=== PATIENT | male | born 1960 | race Caucasian/White ===

== ENCOUNTER 2019-07-15 06:40 | Emergency (ER) | payer SELFPAY ==
--- NOTE | 2019-07-15 08:20 | ER Document Report ---
ED Respiratory Problem - General Chief Complaint: Cough Stated Complaint: FEVER/COUGH Time Seen by Provider: 07/15/19 08:09 Notes: CHIEF COMPLAINT: Cough and fever for 5 days HPI: 58-year-old male presenting to the emergency department complaining of cough and fever over the last 5 days. Patient reports some chest wall discomfort with coughing only. States fever has been up to 102 5 days ago but feels like it has been slightly decreasing over the last several days. Patient reports a continued spastic cough. No recent ill contacts although he states he visited a friend in the hospital 2 weeks ago ROS: See HPI - all other systems were reviewed and are otherwise negative Constitutional: + fever Eyes: no drainage, no blurred vision ENT: no runny nose, no sore throat Cardiovascular: + chest pain with cough only Resp: no SOB, + cough GI: no vomiting, no diarrhea, no abdominal pain : no dysuria Integumentary: no rash Allergy: no hives Musculoskeletal: no extremity pain or swelling Neurological: no numbness/tingling, no weakness MEDICATIONS: I agree with the patient medications as charted by the RN. ALLERGIES: I agree with the allergies as charted by the RN. PAST MEDICAL HISTORY/PAST SURGICAL HISTORY: Reviewed and agree as charted by RN. SOCIAL HISTORY: Reviewed and agree as charted by RN. FAMILY HISTORY: No significant familial comorbid conditions directly related to patient complaint EXAM: Reviewed vital signs as charted by RN. CONSTITUTIONAL: Alert and oriented and responds appropriately to questions. Well-appearing; well-nourished, mild distress secondary to cough HEAD: Normocephalic; atraumatic EYES: PERRL; Conjunctivae clear, sclerae non-icteric ENT: normal nose; no rhinorrhea; moist mucous membranes; pharynx without lesions noted, no uvula edema or deviation, no tonsillar hypertrophy, phonation normal NECK: Supple without meningismus; non-tender; no cervical lymphadenopathy, no masses CARD: RRR; no murmurs, no clicks, no rubs, no gallops; symmetric distal pulses RESP: Normal chest excursion without splinting or tachypnea; breath sounds clear and equal bilaterally; no wheezes, no rhonchi, no rales, pulse oximetry 96% on room air not hypoxic ABD/GI: Normal bowel sounds; non-distended; soft, non-tender, no rebound, no guarding; no palpable organomegaly or masses. BACK: The back appears normal and is non-tender to palpation, there is no CVA tenderness EXT: Normal ROM in all joints; non-tender to palpation; no cyanosis, no effusions, no edema SKIN: Normal color for age and race; warm; dry; good turgor; no acute lesions noted NEURO: Moves all extremities equally; Motor and sensory function intact PSYCH: The patient's mood and manner are appropriate. Grooming and personal hygiene are appropriate. MDM: 58-year-old male presenting for upper respiratory symptoms for 5 days. Started with sinus congestion and cough. Unlikely that this is ACS. Initial triage orders for chest x-ray, influenza, strep, he has no throat discomfort at this time TRAVEL OUTSIDE OF THE [place] IN LAST 30 DAYS: No - Related Data Allergies/Adverse Reactions: Penicillins Allergy (Mild, Verified 07/15/19 07:27) Past Medical History - Social History Smoking Status: Current Every Day Smoker Chew tobacco use (# tins/day): No Frequency of alcohol use: None Drug Abuse: Marijuana Family History: Reviewed & Not Pertinent Patient has suicidal ideation: No Patient has homicidal ideation: No GI Medical History: Reports: Hx Gastroesophageal Reflux Disease Past Surgical History: Reports: Hx Abdominal Surgery - right hernia repair (groin) - Immunizations Hx Diphtheria, Pertussis, Tetanus Vaccination: No Physical Exam - Vital signs Vitals: Temp Pulse Resp BP Pulse Ox 97.7 F 70 16 117/75 96 07/15/19 06:58 07/15/19 06:58 07/15/19 06:58 07/15/19 06:58 07/15/19 06:58 Course - Re-evaluation Re-evalutation: 07/15/19 09:06 Rapid strep and influenza test are both negative. Chest x-ray read as negative for infiltrate or pneumonia, multiple old granulomas are noted in both lungs. Patient does smoke he likely has early emphysema. Will cover patient for atypical bronchitis with Zithromax, albuterol MDI, short course of steroids, PCP follow-up. Advised to stop smoking - Vital Signs Vital signs: Temp Pulse Resp BP Pulse Ox 97.7 F 70 16 117/75 96 07/15/19 06:58 07/15/19 06:58 07/15/19 06:58 07/15/19 06:58 07/15/19 06:58 Discharge - Discharge Clinical Impression: Bronchitis, Tobacco use Condition: Stable Disposition: HOME, SELF-CARE Instructions: Bronchitis ([facility]) Additional Instructions: 1. take the medications as prescribed 2. if you were prescribed an Albuterol inhaler, use it as instructed, 2 puffs every 4 hours as needed for cough/wheezing 3. call your primary care provider as soon as possible to schedule recheck appt. in the office. 4. return to the ED for any worsening condition, shortness of breath or continued fever that does not resolve with Motrin/Tylenol 5. stop smoking Prescriptions: Prednisone [Deltasone 20 mg Tablet] 2 tab PO DAILY 5 Days tablet Albuterol Sulfate [Proair HFA Inhalation Aerosol 8.5 gm MDI] 2 puff IH Q4H PRN #1 mdi PRN Reason: Azithromycin [Zithromax 250 mg Tablet] 250 mg PO ASDIR PRN #6 tablet PRN Reason: Referrals: COLTON GOLDSTEIN MD [ACTIVE STAFF] - Follow up as needed
[2019-07-15 08:38] LABS: A TYPE INFLUENZA AG NEGATIVE (NEGATIVE); B INFLUENZA AG NEGATIVE (NEGATIVE)
--- NOTE | 2019-07-15 08:53 | RADIOLOGY REPORT (SQ) ---
EXAM DESCRIPTION: CHEST 2 VIEWS COMPLETED DATE/TIME: 07/15/2019 8:35 am REASON FOR STUDY: cough, upper chest discomfort COMPARISON: CT chest 07/05/2010 Chest films 06/08/2010 EXAM PARAMETERS: NUMBER OF VIEWS: two views TECHNIQUE: Digital Frontal and Lateral radiographic views of the chest acquired. RADIATION DOSE: NA LIMITATIONS: none FINDINGS: LUNGS AND PLEURA: Multiple calcified granulomas are present scattered throughout both lung s, similar compared to chest film 06/08/2010. There is mild hyperinflation with flattening in the hemidiaphragms. No acute infiltrates. No pleural effusion. No pneumothorax. MEDIASTINUM AND HILAR STRUCTURES: No masses or contour abnormalities. HEART AND VASCULAR STRUCTURES: Heart normal size. No evidence for failure. BONES: No acute findings. HARDWARE: None in the chest. OTHER: No other significant finding. IMPRESSION: Obstructive lung disease Multiple old calcified granulomas throughout both lungs. TECHNICAL DOCUMENTATION: JOB ID: [id number] [employer]- All Rights Reserved Reading location - IP/workstation name: [email or web address]
[2019-07-15 09:17] VITALS: BP 126/73
== END 2019-07-15 09:19 | disposition home or self-care (01) ==
LOC: ER 06:40
DX: J40 Bronchitis, not specified as acute or chronic (principal); J84.10 Pulmonary fibrosis, unspecified; R05 Cough; R50.9 Fever, unspecified; R09.89 Other specified symptoms and signs involving the circulatory and respiratory systems; R07.89 Other chest pain; F17.200 Nicotine dependence, unspecified, uncomplicated; Z88.0 Allergy status to penicillin; F12.10 Cannabis abuse, uncomplicated
CPT/HCPCS: 71046; 87070; 87804; 87880; 99283

== ENCOUNTER 2020-05-13 23:08 | Emergency (ER) | payer SELFPAY ==
[2020-05-14 03:35] VITALS: BP 191/95
[2020-05-14] MEDS ORDERED: CLINDAMYCIN HCL 150 MG CAPSULE PO ONE (05:09)
[2020-05-14] MEDS ORDERED: HYDROCODONE/ACETAMINOPHEN 5-325 MG (6 TAB/ER DISP) PO PRN (05:10)
--- NOTE | 2020-05-14 05:13 | ER Document Report ---
HPI - HPI Time Seen by Provider: 05/14/20 05:00 Context: Patient is a 59-year-old male who comes emergency department for chief complaint of dental pain. He states he started having pain and swelling in his mid lower gumline over the past 2 days which is significantly worsened. He states he has a tiny tooth that became evident within his gumline started receding, he has had all his other teeth extracted, he states the area has become inflamed and now painful and swollen. He denies facial swelling, sore throat, difficulty swallowing, fever, or any other complaints. He denies any daily medications or diagnosed medical history. Past Medical History - General Information source: Patient - Social History Smoking Status: Current Every Day Smoker Drug Abuse: None Lives with: Alone Family History: Reviewed & Not Pertinent - Medical History Medical History: Negative GI Medical History: Reports: Hx Gastroesophageal Reflux Disease Past Surgical History: Reports: Hx Abdominal Surgery - right hernia repair (groin) - Immunizations Hx Diphtheria, Pertussis, Tetanus Vaccination: Yes Vertical Provider Document - CONSTITUTIONAL General Appearance: WD/WN, No Apparent Distress - INFECTION CONTROL TRAVEL OUTSIDE OF THE [place] IN LAST 30 DAYS: No - HEENT HEENT: Atraumatic, Normocephalic. negative: Normal ENT Exam - Pharynx unremarkable, uvula unremarkable. Patient has no teeth except for questionable small tooth in the mid lower gumline with surrounding erythema and tenderness but no induration, fluctuance, or noted abscess. External exam of the mouth is unremarkable. No swelling of the jaw. No submandibular swelling. Unremarkable ENT exam otherwise. - NECK Neck: Normal Inspection - RESPIRATORY Respiratory: Breath Sounds Normal, No Respiratory Distress - CARDIOVASCULAR Cardiovascular: Regular Rate, Regular Rhythm - GI/ABDOMEN Gastrointestinal: Abdomen Soft, Abdomen Non-Tender - BACK Back: Normal Inspection - MUSCULOSKELETAL/EXTREMETIES Musculoskeletal/Extremeties: MAEW, FROM, Non-Tender - NEURO Level of Consciousness: Awake, Alert, Appropriate Motor/Sensory: No Motor Deficit, No Sensory Deficit - DERM Integumentary: Warm, Dry, No Rash Course - Re-evaluation Re-evalutation: Patient with evaluation consistent with dental/gumline infection without signs of abscess or concerning findings otherwise. Discussed antibiotics, follow-up, return precautions. Patient states understanding and agreement. - Vital Signs Vital signs: Temp Pulse Resp BP Pulse Ox 98.5 F 65 16 191/95 H 96 05/14/20 03:35 11/13/20 03:35 05/14/20 03:35 05/14/20 03:35 05/14/20 03:35 Discharge - Discharge Clinical Impression: Pain, dental, Dental infection Condition: Stable Disposition: HOME, SELF-CARE Additional Instructions: Your evaluation is consistent with a dental/gingival infection. Take the antibiotics as prescribed to completion. Follow-up with the dental referral or this will continue to happen. Return if you worsen including increased pain, swelling of the face, fever, or any other concerning symptoms. [facility] [address] [place] [address], [id number] [address] Prescriptions: Clindamycin HCl [Cleocin 150 mg Capsule] 150 mg PO Q6 #56 capsule
== END 2020-05-14 05:20 | disposition home or self-care (01) ==
LOC: ER 23:08
DX: K04.7 Periapical abscess without sinus (principal); K08.89 Other specified disorders of teeth and supporting structures; F17.200 Nicotine dependence, unspecified, uncomplicated
CPT/HCPCS: 99284